=== PATIENT | female | born 1950 | race Caucasian/White ===

== ENCOUNTER 2019-05-02 13:46 | Outpatient (CLI) | payer MEDICARE ==
--- NOTE | 2019-05-03 08:58 | DEXA Report ---
Reason: SCREENING FOR OSTEOPOROSIS Procedure Date: 05/02/2019 Accession Number: [id number] / [id number] Procedure: DEX - Dexa Spine and/or Hip CPT Code: FULL RESULT: EXAM: Dexa Spine and/or Hip DATE: 05/02/2019 2:11 PM CLINICAL HISTORY: SCREENING FOR OSTEOPOROSIS, postmenopausal female. TECHNIQUE: Dual energy x-ray absorptiometry (DXA) was performed on a [employer] System. Regions measured are the AP Spine, femoral neck, and if needed forearm. COMPARISON: None. In accordance with the International Society for Clinical Densitometry (ISCD) guidelines, data from previous exams may be reanalyzed using current recommendations and techniques. This is done to allow a more accurate basis for comparison with the current study. FINDINGS: The data for the lumbar spine is as follows: BMD (g/cm/cm) T-SCORE Z-SCORE REGION L1 0.885 -2.0 -0.5 L2 0.964 -2.0 -0.5 L3 1.097 -0.9 0.6 L4 0.974 -1.9 -0.4 TOTAL 0.987 -1.6 -0.1 NOTE: All evaluable vertebrae are used for classification The data for the hip is as follows: BMD (g/cm/cm) T-SCORE Z-SCORE REGION Neck 0.839 -1.4 0.1 TOTAL 0.868 -1.1 0.1 IMPRESSION: THE WHO CLASSIFICATION BASED ON THE INTERNATIONAL REFERENCE STANDARD IS OSTEOPENIA, REFERENCE LUMBAR SPINE. THE FRACTURE RISK IS INCREASED. RECOMMENDATION: Patients with diagnosis of osteoporosis or osteopenia should have regular bone mineral density assessment. For those eligible for Medicare, routine testing is allowed once every 2 years. Testing frequency can be increased for patients who have rapidly progressing disease or for those who are receiving medical therapy to restore bone mass. COMMENT: World Health Organization (WHO) definitions for osteoporosis and osteopenia: NORMAL BMD: T-score at -1.0 or higher, fracture risk is low OSTEOPENIA BMD: T-score between -1.0 and -2.5, fracture risk is increased. OSTEOPOROSIS BMD: T-score at -2.5 or lower, fracture risk is high. National Osteoporosis Foundation recommends: 1. Obtain adequate dietary calcium (at least 1200 mg per day) and vitamin D (400-800 international units per day). 2. Participate, as appropriate, in regular weightbearing and muscle-strengthening exercise. 3. Avoid tobacco use and reduce alcohol and caffeine intake. 4. For more detailed information see the website at www.NOF.org.
== END 2019-05-02 13:47 | disposition home or self-care (01) ==
LOC: DI 13:46
PROVIDERS: ATTEND Registered Nurse
DX: Z13.820 Encounter for screening for osteoporosis (principal); M85.89 Other specified disorders of bone density and structure, multiple sites
CPT/HCPCS: 77080

== ENCOUNTER 2019-05-15 10:44 | Outpatient (CLI) | payer MEDICARE ==
[2019-05-15 17:36] LABS: BASOPHILS # (AUTO) 0.1 10^3/uL (0.0-0.1); BASOPHILS % (AUTO) 1.8 %; EOSINOPHILS # (AUTO) 0.1 10^3/uL (0.0-0.7); EOSINOPHILS % (AUTO) 1.1 %; HGB - HEMOGLOBIN 11.7 g/dL (12.0-16.0); LYMPHOCYTES # (AUTO) 1.8 10^3/uL (1.5-3.5); LYMPHOCYTES % (AUTO) 39.1 %; MEAN CORPUSCULAR HGB CONC 33.1 g/dL (32.0-36.0); MEAN CORPUSCULAR VOLUME 93.4 fL (81.0-99.0); MEAN PLATELET VOLUME 11.8 fL (7.9-10.8); MONOCYTES # (AUTO) 0.5 10^3/uL (0.0-1.0); MONOCYTES % (AUTO) 11.6 %; NEUTROPHILS # (AUTO) 2.1 10^3/uL (1.5-6.6); NEUTROPHILS % (AUTO) 46.4 %; PLT - PLATELET COUNT 207 10^3/uL (130-450); RED BLOOD COUNT 3.78 10^6/uL (4.20-5.40); RED CELL DISTRIBUTION WIDTH 12.6 % (12.0-15.0); WHITE BLOOD COUNT 4.6 x10^3/uL (4.8-10.8)
[2019-05-15 17:57] LABS: ALBUMIN 4.4 g/dL (3.2-5.5); ALBUMIN/GLOBULIN RATIO 1.4 (1.0-2.2); BILIRUBIN,TOTAL 0.7 mg/dL (0.2-1.0); CALCIUM 9.3 mg/dL (8.5-10.3); CREATININE 0.6 mg/dL (0.4-1.0); TOTAL PROTEIN 7.5 g/dL (6.7-8.2)
== END 2019-05-15 10:45 | disposition home or self-care (01) ==
LOC: LAB.S 10:44
PROVIDERS: ATTEND Internal Medicine
DX: R14.0 Abdominal distension (gaseous) (principal)
CPT/HCPCS: 36415; 80053; 85025; 85651

== ENCOUNTER 2019-05-17 10:21 | Outpatient (CLI) | payer MEDICARE ==
--- NOTE | 2019-05-17 10:59 | XRAY Report ---
Reason: ABDOMINAL BLOATING R14.0 Procedure Date: 05/17/2019 Accession Number: [id number] / [id number] Procedure: XRS - Abdomen 2 View X-Ray CPT Code: 71899 FULL RESULT: EXAM: ABDOMEN RADIOGRAPHY EXAM DATE: 05/17/2019 10:33 AM. CLINICAL HISTORY: Gas and abdominal bloating for one month COMPARISON: None. TECHNIQUE: 2 views. FINDINGS: Lung Bases: Unremarkable. Bowel Gas Pattern: Nonspecific gas pattern. Large amount of generalized retained stool. Free Air: None. Other: Lumbar scoliosis with degenerative disk disease of at least L3-L4. IMPRESSION: The primary finding is a large amount of generalized stool. RADIA
== END 2019-05-17 10:22 | disposition home or self-care (01) ==
LOC: DI.S 10:21
PROVIDERS: ATTEND Internal Medicine
DX: R14.0 Abdominal distension (gaseous) (principal)
CPT/HCPCS: 74019

== ENCOUNTER 2019-06-05 14:16 | Outpatient (CLI) | payer MEDICARE ==
--- NOTE | 2019-06-10 13:57 | Mammography Report ---
Reason: ROUTINE MAMMO Procedure Date: 06/05/2019 Accession Number: [id number] / [id number] Procedure: MGS - Screening Mammo Dig Bilat CPT Code: FULL RESULT: EXAM: Screening Mammo Dig Bilat DATE: 06/05/2019 2:46 PM CLINICAL HISTORY: Routine screening, history of prior biopsies. TECHNIQUE: (B) - Bilateral CC and MLO views were obtained. COMPARISON: 06/05/2018, 02/16/2017, 02/27/2015 04/26/2013 PARENCHYMAL PATTERN: (D) - The breasts demonstrate heterogeneously dense fibroglandular parenchyma bilaterally. FINDINGS: No significant interval change. Biopsy clips right upper outer quadrant stable. There are no suspicious masses, calcifications, or areas of distortion. IMPRESSION: Negative examination. BI-RADS category 1. RECOMMENDATION: (ANNUAL) - Recommend routine annual screening mammography. BI-RADS CATEGORY: (1) - Negative. STANDARD QUALIFYING STATEMENTS: 1. This examination was not reviewed with the aid of Computer-Aided Detection (CAD). 2. A negative or benign imaging report should not preclude biopsy if clinically suspicious findings are present. 3. Dense breasts may obscure an underlying neoplasm. 4. This examination was reviewed without the aid of 3D breast imaging (tomosynthesis).
== END 2019-06-05 14:17 | disposition home or self-care (01) ==
LOC: DI.S 14:16
DX: Z12.31 Encounter for screening mammogram for malignant neoplasm of breast (principal)
CPT/HCPCS: 77067

== ENCOUNTER 2019-07-18 15:16 | Outpatient (CLI) | payer MEDICARE ==
--- NOTE | 2019-07-20 11:15 | Ultrasound Report ---
Reason: ABD BLOATING Procedure Date: 07/18/2019 Accession Number: [id number] / [id number] Procedure: US - Pelvic w/Transvaginal CPT Code: Final Report FULL RESULT: EXAM: PELVIC ULTRASOUND EXAM DATE: 07/18/2019 04:00 PM. CLINICAL HISTORY: Abdominal bloating. COMPARISON: None. TECHNIQUE: Realtime transabdominal pelvic scan performed to identify the uterus and adnexa and as an overview of other pelvic structures, followed by transvaginal scan to provide greater detail of the uterus and adnexa, with static image documentation. FINDINGS: Uterus: 4.5 x 2.7 x 2.2 cm, volume 14.2 cc. Retroverted and retroflexed position. Normal overall size and echotexture. Masses: 1. 1.3 x 1 x 1.4 cm left fundal intramural hypoechoic fibroid. 2. At the level of the fundus, possible 0.9 x 0.9 x 0.8 cm submucosal fibroid. Endometrium: 12 mm. Focal complex masslike region in the endometrium measuring 1.5 x 1.1 x 2.2 cm with internal vascularity. Associated cystic components are noted. Apparent cystic area within the endometrium on the image labeled right endometrium sagittal measures up to 0.7 x 0.6 cm. Cervix: Unremarkable. Right Ovary: 1.8 x 0.9 x 1.7 cm, volume 1.5 cc. Normal echotexture and blood flow. Left Ovary: 2.2 x 0.6 x 1.5 cm, volume 1.1 cc. Normal echotexture and blood flow. Free Fluid: None. Other: None. IMPRESSION: 1. Complex masslike lesion in the fundal endometrium measuring up to 2.2 cm with small cystic components and internal vascularity. Correlate for dysfunctional uterine bleeding. Findings could represent endometrial carcinoma or endometrial hyperplasia/polyp. MRI of the pelvis with and without contrast, sonohysterogram or endometrial sampling could be performed as needed. 2. 0.9 cm fundal submucosal fibroid. 1.4 cm left fundal intramural fibroid. 3. Both ovaries and adnexa are normal. RADIA
== END 2019-07-18 15:17 | disposition home or self-care (01) ==
LOC: DI 15:16
PROVIDERS: ATTEND Registered Nurse
DX: R14.0 Abdominal distension (gaseous) (principal); D49.59 Neoplasm of unspecified behavior of other genitourinary organ
CPT/HCPCS: 76830; 76856

== ENCOUNTER 2019-07-25 17:39 | Outpatient (CLI) | payer MEDICARE ==
[2019-07-25] MEDS ORDERED: GADOBUTROL 7.5 MMOL/7.5 ML VIAL ONE (18:44)
[2019-07-25] MEDS: GADOBUTROL 7.5 MMOL/7.5 ML VIAL IVP ONE (19:18)
--- NOTE | 2019-07-26 16:15 | MRI Report ---
Reason: ABD BLOATING Procedure Date: 07/25/2019 Accession Number: [id number] / [id number] Procedure: MRI - Pelvis W/WO CPT Code: Final Report FULL RESULT: EXAM: MR PELVIS WITH AND WITHOUT CONTRAST (MR FEMALE PELVIS) EXAM DATE: 07/25/2019 07:30 PM. CLINICAL HISTORY: ABD BLOATING. COMPARISON: PELVIC W/TRANSVAGINAL 07/18/2019 3:25 PM. TECHNIQUE: Multiplanar breath-hold T1, T2 obtained through the pelvis on an MR scanner. Images obtained before and after administration of 6 cc Gadavist intravenous contrast. FINDINGS: Reproductive Organs: Uterus: The uterus is anteverted, retroflexed, and measures 4.5 x 2.0 x 3.7 cm with volume 17 cc. There is an 8.0 cm hypoenhancing T2 hypointense intramural fibroid in the left frontal region as seen on series 501 image 17 and series 901 image 71. The endometrial stripe measures up to 9 mm in the fundus where there is 9 x 15 x 21 mm circumscribed oval masslike area with multiple tiny nonenhancing cystic foci, as seen on the ultrasound. Right Ovary: The right ovary measures 1.9 x 1.0 x 2.1 cm with volume 2.0 cc (501/21, 701/22). Unremarkable. Left Ovary: The left ovary measures 2.8 x 0.6 x 2.6 cm with volume 2.2 cc (501/22, 701/21). Unremarkable. Bowel: The visualized portions of the small bowel, colon, and rectum appear normal. Bladder: The urinary bladder appears normal. Other: Bones and body wall are unremarkable. IMPRESSION: Approximately 9 x 15 x 21 mm masslike area of thickening in the endometrium in the uterine body and fundus with multiple small nonenhancing cystic spaces, most consistent with an endometrial polyp. Cystic endometrial hyperplasia is less likely. Endometrial carcinoma is least likely, but endometrial biopsy should be considered to exclude this entity. If the biopsy is negative, history of sonogram could be used to confirm that the structure represents a polyp rather than hyperplasia (as clinically indicated). RADIA
== END 2019-07-25 17:40 | disposition home or self-care (01) ==
LOC: DI 17:39
PROVIDERS: ATTEND Registered Nurse
DX: R14.0 Abdominal distension (gaseous) (principal); R93.89 Abnormal findings on diagnostic imaging of other specified body structures
CPT/HCPCS: 72197; A9585

== ENCOUNTER 2019-09-10 09:46 | Outpatient (CLI) | payer MEDICARE ==
[2019-09-10 10:13] LABS: BASOPHILS # (AUTO) 0.1 10^3/uL (0.0-0.1); BASOPHILS % (AUTO) 1.2 %; HGB - HEMOGLOBIN 12.3 g/dL (12.0-16.0); LYMPHOCYTES # (AUTO) 1.7 10^3/uL (1.5-3.5); LYMPHOCYTES % (AUTO) 38.2 %; MEAN CORPUSCULAR HEMOGLOBIN 29.1 pg (27.0-31.0); MEAN CORPUSCULAR VOLUME 90.8 fL (81.0-99.0); MEAN PLATELET VOLUME 10.2 fL (7.9-10.8); MONOCYTES # (AUTO) 0.4 10^3/uL (0.0-1.0); MONOCYTES % (AUTO) 9.7 %; NEUTROPHILS # (AUTO) 2.2 10^3/uL (1.5-6.6); NEUTROPHILS % (AUTO) 50.7 %; PLT - PLATELET COUNT 195 10^3/uL (130-450); RED BLOOD COUNT 4.23 10^6/uL (4.20-5.40); RED CELL DISTRIBUTION WIDTH 12.6 % (12.0-15.0); WHITE BLOOD COUNT 4.3 x10^3/uL (4.8-10.8)
[2019-09-10 10:27] LABS: ALBUMIN 4.4 g/dL (3.2-5.5); ALBUMIN/GLOBULIN RATIO 1.5 (1.0-2.2); BILIRUBIN,TOTAL 0.5 mg/dL (0.2-1.0); CALCIUM 9.3 mg/dL (8.5-10.3); CREATININE 0.6 mg/dL (0.4-1.0); TOTAL PROTEIN 7.3 g/dL (6.7-8.2)
== END 2019-09-10 09:47 | disposition home or self-care (01) ==
LOC: LAB 09:46
PROVIDERS: ATTEND Obstetrics & Gynecology
DX: Z01.812 Encounter for preprocedural laboratory examination (principal); N84.0 Polyp of corpus uteri
CPT/HCPCS: 36415; 80053; 85025

== ENCOUNTER 2019-09-11 14:54 | Day surgery (SDC) | payer MEDICARE ==
[~2019-09-11 14:54] MED LIST: ACETAMINOPHEN 1,000 MG/100 ML 100 ML IV ONE; CEFAZOLIN SODIUM IN 0.9 % NACL 2 GM/100 ML BAG IV ONE; CELECOXIB 100 MG CAPSULE PO ONE; GABAPENTIN 400 MG CAPSULE ONE
[2019-09-11] MEDS ORDERED: LACTATED RINGERS 1,000 ML IV ONE (14:59)
--- NOTE | 2019-09-11 15:11 | ANESTHESIA ---
Pre-Anesthesia VS, & Labs - Diagnosis Endometrial polyp - Procedure D and C, myosure hysteroscopy Vital Signs: Temp Pulse Resp BP Pulse Ox 36.3 C L 80 16 137/72 H 97 09/11/19 15:00 09/11/19 15:00 09/11/19 15:00 09/11/19 15:00 09/11/19 15:00 Height 5 ft 6 in Weight (kg) 67 kg - NPO >8 hours, Other (Sip water with meds) - Is Patient ?: No - Lab Results Lab results reviewed: Yes Home Medications and Allergies Home Medications: Ambulatory Orders Calcium Carbonate [Calcium] 600 mg PO BID 09/10/19 Cholecalciferol (Vitamin D3) [Vitamin D3] 2,000 unit PO DAILY 09/10/19 Multivitamin [Multiple Vitamins] 1 each PO DAILY 09/10/19 Calcium Carbonate [Calcium] 600 mg PO BID 09/10/19 Cholecalciferol (Vitamin D3) [Vitamin D3] 2,000 unit PO DAILY 09/10/19 Multivitamin [Multiple Vitamins] 1 each PO DAILY 09/10/19 Allergies/Adverse Reactions: Allergies Allergy/AdvReac Type Severity Reaction Status Date / Time Sulfa (Sulfonamide Allergy Rash Verified 09/10/19 10:24 Antibiotics) benzonatate AdvReac hypotension, Verified 09/10/19 10:24 fainting omeprazole [From Prilosec] AdvReac Nausea Verified 09/10/19 10:24 Anes History & Medical History - Anesthetic History Anesthesia Complications: reports: No previous complications Family history of Anesthesia Complications: Denies Family history of Malignant Hyperthermia: Denies (Bloating) - Medical History Cardiovascular: reports: None Pulmonary: reports: None Gastrointestinal: reports: Colon polyps, Other Urinary: reports: None Neuro: reports: None Musculoskeletal: reports: Osteoarthritis, Osteopenia, Chronic back pain Endocrine/Autoimmune: reports: None Blood Disorders: reports: None Skin: reports: Eczema Smoking Status: Never smoker Psychosocial: reports: No issues indicated - Surgical History General: Colonoscopy, EGD Eyes Ears Nose Throat (EENT): Tonsil/Adenoidectomy Gynecologic: Tubal ligation Exam General: Alert Dental: TMJ, Other (Permanent retainer bottom) Mouth Opening: Greater than 4 Fingerbreadths Neck Mobility: Normal Mallampati classification: I Thyromental Distance: greater than 6 cm Respiratory: Lungs clear Cardiovascular: Regular rate Mental/Cognitive Status: Alert/Oriented X3 Plan Anesthesia Type: General Consent for Procedure(s) Verified and Reviewed: Yes Code Status: Attempt Resuscitation ASA classification: 2-Mild systemic disease Is this case an emergency?: No
[2019-09-11] MEDS ORDERED: LIDOCAINE 1%-EPI 1:100000 20 ML MDV ONE (16:02)
[2019-09-11] MEDS ORDERED: BUPIVACAINE 0.5% PF 30 ML VIAL ONE (16:03)
[2019-09-11] MEDS ORDERED: PROPOFOL 200 MG/20 ML VIAL IVP ONE (16:19)
[2019-09-11] MEDS ORDERED: LIDOCAINE-MPF 2% 5 ML VIAL IM ONE (16:19)
[2019-09-11] MEDS ORDERED: MIDAZOLAM 2 MG/2 ML VIAL IVP ONE (16:19)
[2019-09-11] MEDS ORDERED: ONDANSETRON 4 MG/2 ML VIAL IVP ONE (16:19)
[2019-09-11] MEDS ORDERED: KETOROLAC 30 MG/ML VIAL IVP ONE (16:19)
[2019-09-11] MEDS ORDERED: fentaNYL 100 MCG/2 ML VIAL IVP ONE (16:19)
[2019-09-11] MEDS ORDERED: ONDANSETRON 4 MG/2 ML VIAL IVP PRN (17:17)
[2019-09-11] MEDS ORDERED: LORazepam 2 MG/ML VIAL IVP PRN (17:17)
[2019-09-11] MEDS ORDERED: oxyCODONE 5 MG TABLET PO PRN (17:17)
--- NOTE | 2019-09-11 17:20 | OPERATIVE REPORT ---
Operative Report - General Procedure Date: 09/11/19 Planned Procedure: Hysterscopy with D&C resection of endometrial polyp Pre-Op Diagnosis: endometrial polyp with cystic hyperplasia Procedure Performed: Hysterscopy with D&C resection of endometrial polyp Post Op Diagnosis: endometrial polyp with cystic hyperplasia - Procedure Note Primary Surgeon: Rafael Hsieh MD Anesthesia Provider: Janes Echols CRNA Anesthesia Technique: General LMA Pathology: endometrial polyp IV Fluids (mL): 250 Estimated Blood Loss (mL): 5 - Other Other Information/Narrative: [id number]
[2019-09-11 17:45] VITALS: BP 123/56
--- NOTE | 2019-09-12 02:17 | OPERATIVE REPORT ---
DATE OF SERVICE: 09/11/2019 Physician: Rafael Hsieh MD PREOPERATIVE DIAGNOSIS: Endometrial polyp with cystic hyperplasia. POSTOPERATIVE DIAGNOSES: Endometrial polyp with cystic hyperplasia. PROCEDURE PERFORMED: Hysteroscopy with dilatation and curettage and resection of endometrial polyp. SURGEON: Rafael Hsieh MD ANESTHESIA PROVIDER: Janes Ba CRNA ANESTHETIC: General via laryngeal mask airway. ESTIMATED BLOOD LOSS: 5 mL IV FLUIDS: 250 mL FINDINGS: Uterus sounded to 7 cm. There was evidence of an endometrial polyp filling the entire end ometrial cavity. This was removed without incident. PROCEDURE: Following adequate general anesthetic via LMA, patient was placed in the dorsal lithotomy position in [facility]. At this point, pelvic examination was performed in which the uterus was felt to be somewhat anterior. She was then prepped and draped in the usual fashion. A timeout was performed, at which time concerns were addressed. She had never had any children; thus, the cervix w as very tight with concerns about it being stenotic. At this point, the procedure was commenced. A speculum was placed in the vagina. The cervix was vis ualized, grasped with a single-tooth tenaculum anteriorly. The cervix was noted to be very stenotic in that she had never had any children. The 3 mm dilator was then passed through the cervix. Care w as taken to try and follow the cervical canal to decrease the risk of forming a pseudo tract. She wa s then dilated up to 7 mm. At this point, the hysteroscope was introduced, and there was evidence of a polyp filling the interior cavity of the uterus. This was removed with the MyoSure. Both cornua were easily visualized and there was no evidence of remaining polyp. At this point, the procedure was terminated. The cervix was released from the single-tooth tenaculum . The patient tolerated the procedure well and was taken to recovery in stable condition. Sponge an d needle counts were correct. TD: 09/11/2019 17:27
== END 2019-09-11 14:55 | disposition home or self-care (01) ==
LOC: SDS 14:54
PROVIDERS: ATTEND Obstetrics & Gynecology
PROC: 0UB98ZZ Excision of Uterus, Via Natural or Artificial Opening Endoscopic (ICD-10-PCS; principal; 2019-09-11 16:15)
DX: N84.0 Polyp of corpus uteri (principal); R14.0 Abdominal distension (gaseous)
CPT/HCPCS: 58558; A9270; J0131; J0690; J7120

== ENCOUNTER 2020-01-24 08:25 | Outpatient (CLI) | payer MEDICARE ==
[2020-01-24] MEDS ORDERED: IOVERSOL 320 100 ML VIAL IVP ONE ×2 (08:35→10:18)
[2020-01-24] MEDS ORDERED: IOVERSOL 320 50 ML VIAL ONE (08:35)
[2020-01-24 08:53] LABS: CREATININE 0.6 mg/dL (0.4-1.0)
[2020-01-24] MEDS ORDERED: IOVERSOL 320 50 ML VIAL PO ONE (10:18)
--- NOTE | 2020-01-24 16:27 | CT Report ---
PROCEDURE: Abdomen/Pelvis W INDICATIONS: Abdominal Bloating CONTRAST: IV CONTRAST: Optiray 320 ml: 100 PO CONTRAST: Optiray 320 ml50 TECHNIQUE: After the administration of oral and intravenous contrast, 5 mm thick sections acquired from the diap hragms to the symphysis. 5 mm thick coronal and sagittal reformats were acquired. For radiation dos e reduction, the following was used: automated exposure control, adjustment of mA and/or kV accordin g to patient size. COMPARISON: MRI pelvis 07/25/2019. FINDINGS: Image quality: Excellent. ABDOMEN: Lung bases: There is minimal dependent atelectasis. Heart size is normal. Solid organs: Evaluation of the liver demonstrates no focal hepatic mass lesion. Gallbladder appears within normal limits without calcified gallstones. Biliary system is non dilated. No peripancreatic fat stranding or fluid collections. 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 The main pancreatic duct is nondistended. No adrenal nodules. Kidneys demonstrat e normal size and enhancement, without hydronephrosis. Peritoneum and bowel: Small bowel loops demonstrate normal wall thickness and caliber. The appendix i s normal in appearance. There is moderate stool distention throughout the colon suggestive of constip ation. No definite evidence of obstruction. Colonic diverticulosis is demonstrated without acute dive rticulitis. No free fluid or air. Nodes and vessels: No retroperitoneal or mesenteric adenopathy by size criteria. Aorta and inferior vena cava are normal in size. Miscellaneous: No ventral hernias. PELVIS: Genitourinary: Bladder wall thickness is normal. Miscellaneous: No inguinal hernias or adenopathy. Bones: No suspicious bony lesions. No vertebral body compression fractures. IMPRESSION: 1. Moderate colonic stool distention suggestive of constipation. No definite bowel obstruction. 2. Colonic diverticulosis without acute diverticulitis. 3. Small oval cystic lesion within the pancreatic body is nonspecific but likely represents a small s tawana branch IPMN. Further evaluation may be obtained with a pancreatic protocol MRI if clinically cece cated. Reviewed by: Pancho Farmer MD on 01/24/2020 4:25 PM PDT Approved by: Pancho Farmer MD on 01/24/2020 4:25 PM PDT Station ID: [id number]
== END 2020-01-24 08:26 | disposition home or self-care (01) ==
LOC: DI 08:25
DX: R14.0 Abdominal distension (gaseous) (principal); K57.30 Diverticulosis of large intestine without perforation or abscess without bleeding; K86.9 Disease of pancreas, unspecified
CPT/HCPCS: 36415; 74177; 82565; Q9967

== ENCOUNTER 2021-07-15 19:45 | Emergency (ER) | payer MEDICARE ==
[2021-07-15 19:53] VITALS: BP 140/74
[2021-07-15] MEDS ORDERED: KETOROLAC 30 MG/ML VIAL IM STA (20:13)
--- NOTE | 2021-07-15 20:42 | XRAY Report ---
PROCEDURE: Wrist 2 View RT INDICATIONS: dog bite distal forearm TECHNIQUE: 2 views of the wrist were acquired. COMPARISON: None FINDINGS: Bones: No fractures or dislocations. No suspicious bony lesions. First CMC joint and triscaphe art iculation osteoarthritis. Soft tissues: No suspicious soft tissue calcifications. Slightly irregular soft tissue defect invol ving the lateral aspect of the distal forearm. No underlying foreign bodies IMPRESSION: Soft tissue defect over the lateral distal forearm without underlying foreign body or fracture. Reviewed by: Arianna Soler MD on 07/15/2021 8:41 PM PST Approved by: Arianna Soler MD on 07/15/2021 8:41 PM PST Station ID: [id number]
--- NOTE | 2021-07-15 20:52 | ED Physician Documentation ---
History of Present Illness - Stated complaint Stated Complaint: DOG BITE - Chief complaint Chief Complaint: Ext Problem - History obtained from History obtained from: Patient - Additonal information Additional information: 70-year-old woman presents status post dog bite, seen earlier today at walk-in clinic and prescribed Augmentin. Patient returns because she is having persistent gradual in onset pain to the right wrist and forearm where the dog bite is. Aching, constant, moderate severity, radiating from wrist to forearm, worse with range of motion of the wrist. patient is R hand dominant Review of Systems Skin: reports: Bite / sting PD PAST MEDICAL HISTORY - Past Medical History Neuro: None - Present Medications Home Medications: Ambulatory Orders Medication Instructions Recorded Confirmed Calcium Carbonate [Calcium] 600 mg PO BID 09/10/19 07/15/21 Cholecalciferol (Vitamin D3) 2,000 unit PO DAILY 09/10/19 07/15/21 [Vitamin D3] Multivitamin [Multiple Vitamins] 1 each PO DAILY 09/10/19 07/15/21 Amox/Clav 875/125 [Augmentin 1 tab PO BID 07/15/21 07/15/21 875/125 Tab] Ibuprofen [Motrin Ib] 600 mg PO Q6H PRN #30 tab 07/15/21 - Allergies Allergies/Adverse Reactions: Allergies Allergy/AdvReac Type Severity Reaction Status Date / Time Sulfa (Sulfonamide Allergy Rash Verified 07/15/21 19:53 Antibiotics) benzonatate AdvReac hypotension, Verified 07/15/21 19:53 fainting omeprazole [From Prilosec] AdvReac Nausea Verified 07/15/21 19:53 - Social History Smoking Status: Never smoker PD ED PE NORMAL - Vitals Vital signs reviewed: Yes - General General: Alert and oriented X 3, No acute distress, Well developed/nourished - HEENT HEENT: Atraumatic, PERRL, EOMI - Derm Derm: Normal color, Warm and dry, Other (laceration to L forearm with sutures in place. puncture to L forearm, hemostatic. ) - Extremities Extremities: No deformity, Other (2+ BL radial pulses. mild swelling to L distal forearm with soft compartments. normal cap refill, sensation, movement) - Neuro Neuro: No motor deficit, No sensory deficit - Psych Psych: Normal mood, Normal affect Results - Vitals Vitals: Vital Signs - 24 hr 07/15/21 19:48 Temperature 36.8 C Heart Rate 76 Respiratory 18 Rate Blood Pressure 140/74 H O2 Saturation 100 Oxygen O2 Source Room air PD MEDICAL DECISION MAKING - ED course ED course: 70-year-old woman presents with pain to the right distal forearm and wrist after a dog bite earlier today. Compartment soft, with intact pulses, minimal swelling, normal hand and finger color, normal movement/sensation. she is taking Tylenol at home. Administered Toradol in the emergency department with improvement. Symptomatic care discussed. Strict return precautions discussed including return precautions for compartment syndrome. Plan follow-up for wound check outpatient. Departure - Departure Disposition: Home, Self Care Clinical Impression: Dog bite Condition: Stable Instructions: ED Bite Dog Prescriptions: Ibuprofen [Motrin Ib] 600 mg PO Q6H PRN #30 tab PRN Reason: Pain Comments: You are seen in the emergency department for evaluation of your dog bite. Please monitor for any of the signs and symptoms we discussed and return to the emergency department if you have any new or worsening symptoms or other concerns. Take ibuprofen 400 to 600 mg every 6 hours as needed for pain. Apply ice for 20 minutes every hour and elevate above the level of your heart to reduce swelling. Plan to follow-up for wound check with your primary doctor or urgent care or walk in clinic this week. Discharge Date/Time: 07/15/21 20:58
== END 2021-07-15 20:58 | disposition home or self-care (01) ==
LOC: ED 19:45
DX: M25.531 Pain in right wrist (principal); M79.631 Pain in right forearm; W54.0XXA Bitten by dog, initial encounter
CPT/HCPCS: 96372; 99281; 99283

== ENCOUNTER 2021-07-17 08:00 | Outpatient (CLI) | payer MEDICARE | END 2021-07-17 08:01 | disposition home or self-care (01) | LOC: LAB.S 08:00 | PROVIDERS: ATTEND Physician Assistant Medical | DX: L03.113 Cellulitis of right upper limb (principal) | CPT/HCPCS: 87070; 87205 ==

== ENCOUNTER 2021-07-19 19:54 | Emergency (ER) | payer MEDICARE ==
[2021-07-19] MEDS ORDERED: HYDROmorphone 1 MG/ML CARPUJECT IVP STA (21:04)
[2021-07-19] MEDS ORDERED: HYDROmorphone 1 MG/ML CARPUJECT IM STA (21:08)
[2021-07-19 21:53] VITALS: BP 117/67
--- NOTE | 2021-07-19 21:57 | ED Physician Documentation ---
History of Present Illness - Stated complaint Stated Complaint: WOUND INFECTION - Chief complaint Chief Complaint: Wound - Additonal information Additional information: 70-year-old female presents emergency department for evaluation of dog bite wound to her right forearm. She was bitten by a former neighbors dog on 15 July. She initially presented to one of our local walk-in clinics. The wound was rather large therefore it was tacked closed with 4 sutures. She was started on Augmentin. Shortly thereafter she was seen in our emergency department for increased pain and was given Toradol and advised to continue the antibiotics. Despite taking the Augmentin she continued to have increased redness swelling and red streaking. She was then started on doxycycline. Despite this she has had persistent and severe pain in the right forearm. She reports that the redness has improved but she cannot even lightly touch the wound without significant pain. There have been no fevers. Patient is right- hand dominant. Her tetanus is up-to-date. 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 : None HEENT: None Psych: None Musculoskeletal: None Derm: None - Past Surgical History Past Surgical History: No - Present Medications Home Medications: Ambulatory Orders Medication Instructions Recorded Confirmed Calcium Carbonate [Calcium] 600 mg PO BID 09/10/19 07/15/21 Cholecalciferol (Vitamin D3) 2,000 unit PO DAILY 09/10/19 07/15/21 [Vitamin D3] Multivitamin [Multiple Vitamins] 1 each PO DAILY 09/10/19 07/15/21 Amox/Clav 875/125 [Augmentin 1 tab PO BID 07/15/21 07/15/21 875/125 Tab] Ibuprofen [Motrin Ib] 600 mg PO Q6H PRN #30 tab 07/15/21 - Allergies Allergies/Adverse Reactions: Allergies Allergy/AdvReac Type Severity Reaction Status Date / Time Sulfa (Sulfonamide Allergy Rash Verified 07/19/21 19:56 Antibiotics) benzonatate AdvReac hypotension, Verified 07/19/21 19:56 fainting omeprazole [From Prilosec] AdvReac Nausea Verified 07/19/21 19:56 - Social History Does the pt smoke?: No Smoking Status: Never smoker Does the pt drink ETOH?: No Does the pt have substance abuse?: No - Immunizations Immunizations are current?: Yes - POLST Patient has POLST: No PD ED PE EXPANDED - Extremities Extremities: Right forearm (Approximate 4 cm bite laceration to the radial side of the right forearm. 4 x 4 area of surrounding erythema and induration very sensitive to touch. 4 sutures were removed from this bite wound and a large amount of purulent fluid immediately drained.) Results - Vitals Vitals: Vital Signs - 24 hr 07/19/21 07/19/21 07/19/21 19:57 21:13 21:51 Temperature 36.5 C 36.3 C L Heart Rate 76 84 64 Respiratory 16 18 14 Rate Blood Pressure 128/59 L 128/72 117/67 O2 Saturation 98 100 99 Oxygen O2 Source Room air PD MEDICAL DECISION MAKING - ED course Complexity details: reviewed results, re-evaluated patient, d/w patient ED course: 70-year-old female presents the emergency department for evaluation of a dog bite wound to the right forearm that has become infected. It was initially closed a local walk-in clinic and she was started on Augmentin and then doxycycline. Despite this she has had persistent pain but no fevers. At the bedside after administering 1 mg of Dilaudid we did remove the sutures that were in place. Unfortunately a very large amount of purulent fluid drained from the wound. This was sent for culture. The laceration was opened up and thoroughly irrigated with saline and then lightly packed with saline impregnated gauze. Patient is to continue her doxycycline and Augmentin. She reports having oxycodone at home from a previous surgery. I have encouraged her to take this. We discussed routine wound care at home and that I would expect with improved infection the pain should improve however given the depth and size of this wound she is to contact her primary care doctor to obtain a wound referral. Emergent return precautions were discussed for failure of symptoms to resolve. Departure - Departure Disposition: Home, Self Care Clinical Impression: Dog bite of right forearm with infection Qualifiers: Encounter type: subsequent encounter Qualified Code(s): S51.851D - Open bite of right forearm, subsequent encounter; L08.9 - Local infection of the skin and subcutaneous tissue, unspecified; W54.0XXD - Bitten by dog, subsequent encounter Condition: Stable Record reviewed to determine appropriate education?: Yes Comments: Lola unfortunately your dog bite wound has become seriously infected. We did remove all of the sutures from the wound and a large amount of purulent material drained out. We did send it for a culture. I do recommend that you continue the Augmentin and the doxycycline. Finish the full course of both antibiotics. I recommended that you call your primary care doctor tomorrow and request a referral to wound therapy. Tomorrow afternoon you can gently remove your dressing and wash with warm soap and water. Please apply a small amount of saline to the 2 x 2 gauze, pack it into the wound and then cover with nonstick dressing. I would expect reduced pain as this infection begins to heal. I recommend that you take the oxycodone that you already have at home about 1 hour before doing the dressing change. If at any point you are having increased redness, fevers milky drainage or red streaking you are to return immediately to the ER.
== END 2021-07-19 22:08 | disposition home or self-care (01) ==
LOC: ED 19:54
DX: S51.851A Open bite of right forearm, initial encounter (principal); L08.9 Local infection of the skin and subcutaneous tissue, unspecified; W54.0XXA Bitten by dog, initial encounter
CPT/HCPCS: 87070; 87205; 96372; 99283; J1170

== ENCOUNTER 2022-08-09 08:39 | Outpatient (CLI) | payer MEDICARE ==
--- NOTE | 2022-08-17 10:06 | Mammography Report ---
BILATERAL DIGITAL SCREENING MAMMOGRAM 3D/2D WITH EXAGGERATED CC: 08/09/2022 CLINICAL: Routine screening. Family history of breast cancer. Comparison is made to exams dated: 06/05/2019 mammogram - [facility], 06/05/2018 alexandreamogram, and 02/17/2017 mammogram - [facility]. Both breasts are heterogeneously dense, which may obscure small masses (category c / 51-75% glandular tissue). Reporting delay due to awaiting outside images for comparison. There are biopsy clips in the right breast. No significant masses, calcifications, or other findings are seen in either breast. There has been no significant interval change. IMPRESSION: NEGATIVE There is no mammographic evidence of malignancy. A 1 year screening mammogram is recommended. Based on the Tyrer Cuzick model (a risk assessment model) the patients lifetime risk is 8.2% and her 10 year risk is 5.2%. According to the ACR, ACS, and NCCN guidelines, an annual breast MRI exam brian g with mammogram is recommended if the patients lifetime risk is 20% or greater. This exam was interpreted at Station ID: [id number]. NOTE: For mammograms, a report in lay terms will be sent to the patient. Approximately 15% of breast malignancies will not be visualized mammographically. In the management of a palpable breast mass, a negative mammogram must not discourage biopsy of a clinically suspicious lesion. Electronically Signed By: Aniket Conley M.D. [email or web address]:08/17/2022 07:25:08 ACR BI-RADS Category 1: Negative 3341F PARENCHYMAL PATTERN: (D) - The breast(s) demonstrate(s) heterogeneously dense fibroglandular parmickiy ma. BI-RADS CATEGORY: (1) - 1 RECOMMENDATION: (ANNUAL) - Recommend routine annual screening mammography. [id number] 1 year screening LATERALITY: (B)
== END 2022-08-09 08:40 | disposition home or self-care (01) ==
LOC: DI.S 08:39
DX: Z12.31 Encounter for screening mammogram for malignant neoplasm of breast (principal)

== ENCOUNTER 2023-06-08 07:36 | Day surgery (SDC) | payer MEDICARE ==
[~2023-06-08 07:36] MED LIST changes: -ACETAMINOPHEN 1,000 MG/100 ML 100 ML IV ONE; +BRIMONIDINE 0.2% OPHTH DROPS 5 ML ONE; +BSS/LIDOCAINE/EPINEPHRINE 1 ML VIAL ONE; -CEFAZOLIN SODIUM IN 0.9 % NACL 2 GM/100 ML BAG IV ONE; -CELECOXIB 100 MG CAPSULE PO ONE; +CYCLOPENTOLATE 1% OPHTH DROPS 2 ML ONE; +EPINEPHrine 1 MG/ML AMP ONE; -GABAPENTIN 400 MG CAPSULE ONE; +KETOROLAC 0.45% OPHTH DROPS ONE; +PHENYLEPHRINE 2.5% OPHTH 2 ML DROPS ONE; +PROPARACAINE 0.5% OPHTH DROPS 15 ML ONE; +TIMOLOL 0.5% OPHTH DROPS ONE; +TRIAMCIN/MOXIFLOX OPHTHALMIC 0.6 ML VIAL IO ONE
[2023-06-08] MEDS ORDERED: LACTATED RINGERS 1,000 ML IV ONE ×2 (07:43→08:53)
--- NOTE | 2023-06-08 08:09 | ANESTHESIA ---
Pre-Anesthesia VS, & Labs - Diagnosis L nuclear cataract - Procedure L extraction cataract w IOL Vital Signs: Temp Pulse Resp BP Pulse Ox O2 Flow Rate 36.4 C L 73 16 128/75 97 06/08/23 07:43 06/08/23 07:43 06/08/23 07:43 06/08/23 07:43 06/08/23 07:43 Height: 5 ft 6 in Weight (kg): 66 kg Body Mass Index: 23.5 BMI Classification: Normal - NPO >8 hours - Is Patient ?: No - Lab Results Lab results reviewed: Yes Home Medications and Allergies Home Medications: Ambulatory Orders DULoxetine [Cymbalta] 20 mg PO DAILY 06/07/23 Calcium Carbonate [Calcium] 600 mg PO BID 09/10/19 Cholecalciferol (Vitamin D3) [Vitamin D3] 2,000 unit PO DAILY 09/10/19 Multivitamin [Multiple Vitamins] 1 each PO DAILY 09/10/19 DULoxetine [Cymbalta] 20 mg PO DAILY 06/07/23 Allergies/Adverse Reactions: Allergies Allergy/AdvReac Type Severity Reaction Status Date / Time Sulfa (Sulfonamide Allergy Rash Verified 06/08/23 07:56 Antibiotics) benzonatate AdvReac hypotension, Verified 06/08/23 07:56 fainting omeprazole [From Prilosec] AdvReac Nausea Verified 06/08/23 07:56 Anes History & Medical History - Medical History Cardiovascular: reports: None Pulmonary: reports: None Gastrointestinal: reports: Colon polyps Urinary: reports: None Neuro: reports: None Musculoskeletal: reports: Osteoarthritis, Fibromyalgia Endocrine/Autoimmune: reports: None Blood Disorders: reports: None Skin: reports: None Smoking Status: Never smoker - Surgical History General: reports: Colonoscopy Gynecologic: reports: Tubal ligation Exam General: Alert, Oriented x3, Cooperative Dental: WNL (hx TMJ) Mouth Opening: Greater than 4 Fingerbreadths Neck Mobility: Normal Mallampati classification: II Thyromental Distance: 4-6 cm Respiratory: Lungs clear, Normal breath sounds, No respiratory distress Cardiovascular: Regular rate Neurological: Normal speech Mental/Cognitive Status: Alert/Oriented X3, Normal for patient Plan Anesthesia Type: MAC Consent for Procedure(s) Verified and Reviewed: Yes Code Status: Attempt Resuscitation ASA classification: 2-Mild systemic disease Is this case an emergency?: No
[2023-06-08] MEDS ORDERED: MIDAZOLAM 2 MG/2 ML VIAL ONE (08:15)
[2023-06-08] MEDS ORDERED: BRIMONIDINE 0.2% OPHTH DROPS 5 ML OPTH ONE (08:24)
[2023-06-08] MEDS ORDERED: EPINEPHrine 1 MG/ML AMP IR ONE (08:25)
[2023-06-08] MEDS ORDERED: TIMOLOL 0.5% OPHTH DROPS OPTH ONE (08:25)
[2023-06-08] MEDS ORDERED: VANCOMYCIN OPHTH (TOPICAL) 10 MG/ML SYRINGE TOP ONE (08:26)
[2023-06-08] MEDS ORDERED: TRIAMCIN/MOXIFLOX OPHTHALMIC 0.6 ML VIAL IO ONE (08:26)
[2023-06-08] MEDS ORDERED: BSS/LIDOCAINE/EPINEPHRINE 1 ML SYRINGE IO ONE (08:26)
[2023-06-08] MEDS ORDERED: PROPARACAINE 0.5% OPHTH DROPS 15 ML EACHEYE ONE (08:26)
--- NOTE | 2023-06-08 08:56 | OPERATIVE REPORT ---
Operative Report - Other Other Information/Narrative: Date of Surgery: 06/08/23 Preop Dx: Visually significant cataract left eye. This was the first cataract surgery. Postop Dx: Same Procedure: Phacoemulsification with posterior chamber toric intraocular lens implant left eye Surgeon: Dr. Praveen Padilla Anesthesia: Monitored anesthesia care Complications: None Operative Indications: This is a 72-year-old F with progressive vision loss in the left eye due to 3-4+ nuclear sclerotic cataract. Best corrected visual acuity was 20/20 with glare to 20/200 vision in the left eye. Indications for surgery were: - Overall decrease in vision - Difficulty seeing words on a computer screen - Difficulty reading - Difficulty seeing words, closed captions, or game scores on TV - Difficulty seeing street signs - Difficulty driving in low light or at night - Difficulty driving at night because of headlights from other vehicles The patient was consented at length concerning the risks and benefits of cataract surgery after which the patient expressed a desire to proceed with surgery. Operative Procedure: The patients cornea was marked in the pre-surgical area to indicate the axis for the toric intraocular lens. The patient was taken into OR#3 and placed under monitored anesthesia care. A surgical time-out was conducted confirming correct patient, correct procedure, and correct surgical site. The patient was given topical anesthesia and then prepped and draped in the usual sterile fashion. The eye was entered at the 6 and 3 oclock pos itions. Intracameral Shugarcaine was injected into the anterior chamber followed by a dispersive viscoelastic. A continuous-tear curvilinear capsulorhexis was performed. The nucleus was hydrodissected and phacoemulsified. The cortex was evacuated using automated infusion and aspiration. A cohesive viscoelastic was injected into the capsular bag and a 22.0 diopter toric intraocular lens was inserted into the bag and rotated to axis 102. Infusion and aspiration were used to evacuate the viscoelastic materials from the eye and the IOL was verified to remain on axis. The wounds were hydrated and the eye inflated to physiologic pressure using balanced salt solution. Approximately 0.25ml of a mixture of moxifolxacin and triamcinolone was injected subconjunctivally in the superior quadrant for infection and inflammation prophylaxis. Wound integrity was checked with Weck-Jannette sponges and the IOL axis was once again verified to be on the correct axis. The patient was taken from the operating room in good condition and given post-op instructions.
[2023-06-08 09:35] VITALS: BP 121/53; O2SAT 98
--- NOTE | 2023-06-08 09:50 | ANESTHESIA POST OP EVALUATION ---
Anesthesia Post Eval - Post Anesthesia Eval Vitals: Last Vital Signs Temp 36.3 C L 06/08/23 09:28 Pulse 62 06/08/23 09:28 Resp 14 06/08/23 09:28 BP 121/53 L 06/08/23 09:28 Pulse Ox 98 06/08/23 09:28 O2 Flow Rate CV Function Including HR & BP: Stable Pain Control: Satisfactory Nausea & Vomiting: Negative Mental Status: Baseline Respiratory Status: Airway Patent Hydration Status: Satisfactory Anesthesia Complications: None
== END 2023-06-08 07:37 | disposition home or self-care (01) ==
LOC: SDS 07:36
PROVIDERS: ATTEND Ophthalmology
DX: H25.12 Age-related nuclear cataract, left eye (principal)
CPT/HCPCS: 66984; A9270; J3490; J7120; V2632; V2787

== ENCOUNTER 2023-06-30 13:20 | Outpatient (CLI) | payer MEDICARE ==
--- NOTE | 2023-06-30 16:58 | MRI Report ---
PROCEDURE: FOOT WO - LT INDICATIONS: LEFT FOOT PAIN TECHNIQUE: Noncontrast sagittal T1 spin echo and T2 fast spin echo with fat saturation, long-axis T1 spin echo a nd T2 fast spin echo with fat saturation, short-axis proton density fast spin echo and T2 fast spin e cho with fat saturation through the forefoot. COMPARISON: None. FINDINGS: Image quality: Excellent. Bones and joints: No bone marrow contusions or metatarsal stress fractures. The sesamoid bones appe ar in expected positions, without internal edema. There is mild periarticular osteophyte formation at the first metatarsophalangeal joint with mild degenerative marrow edema in the first metatarsal head . No intraosseous lesions. Soft tissues: The visualized plantar foot muscles demonstrate normal signal and bulk. Visualized fl exor and extensor tendons appear intact, without tenosynovitis. No soft tissue ganglion cysts. Small amount of fluid between the first and second metatarsal heads. Sagittal images demonstrate no eviden ce for plantar plate tears. IMPRESSION: 1. First metatarsophalangeal joint osteoarthritis. 2. Metatarsal bursitis. Reviewed by: Paula Leigh MD on 06/30/2023 4:57 PM PST Approved by: Paula Leigh MD on 06/30/2023 4:57 PM PST Station ID: [id number]
== END 2023-06-30 13:21 | disposition home or self-care (01) ==
LOC: DI 13:20
PROVIDERS: ATTEND Family Medicine
DX: M19.072 Primary osteoarthritis, left ankle and foot (principal); M77.52 Other enthesopathy of left foot and ankle

== ENCOUNTER 2023-07-27 08:48 | Day surgery (SDC) | payer MEDICARE ==
[~2023-07-27 08:48] MED LIST changes: -BRIMONIDINE 0.2% OPHTH DROPS 5 ML ONE; -BSS/LIDOCAINE/EPINEPHRINE 1 ML VIAL ONE; -CYCLOPENTOLATE 1% OPHTH DROPS 2 ML ONE; -EPINEPHrine 1 MG/ML AMP ONE; -TIMOLOL 0.5% OPHTH DROPS ONE; -TRIAMCIN/MOXIFLOX OPHTHALMIC 0.6 ML VIAL IO ONE
[2023-07-27] MEDS ORDERED: TRIAMCIN/MOXIFLOX OPHTHALMIC 0.6 ML VIAL IO ONE ×2 (08:49→10:29)
[2023-07-27] MEDS ORDERED: EPINEPHrine 1 MG/ML AMP IO ONE ×2 (08:49→10:28)
[2023-07-27] MEDS ORDERED: LACTATED RINGERS 1,000 ML IV ONE ×2 (09:24→11:00)
[2023-07-27] MEDS ORDERED: CYCLOPENTOLATE 1% OPHTH DROPS 2 ML RIGHTEYE ONE (09:31)
[2023-07-27] MEDS ORDERED: BSS/LIDOCAINE/EPINEPHRINE 1 ML VIAL ONE (10:09)
[2023-07-27] MEDS ORDERED: TIMOLOL 0.5% OPHTH DROPS ONE (10:09)
[2023-07-27] MEDS ORDERED: BRIMONIDINE 0.2% OPHTH DROPS 5 ML ONE (10:09)
--- NOTE | 2023-07-27 10:23 | ANESTHESIA ---
Pre-Anesthesia VS, & Labs - Diagnosis right cataract - Procedure right cataract extraction with IOL Vital Signs: Temp Pulse Resp BP Pulse Ox O2 Flow Rate 36.3 C L 66 13 122/59 L 99 0 07/27/23 09:24 07/27/23 09:24 07/27/23 09:24 07/27/23 09:24 07/27/23 09:24 07/27/23 09:24 Height: 5 ft 5 in Weight (kg): 67.2 kg Body Mass Index: 24.6 BMI Classification: Normal - NPO >8 hours - Is Patient ?: No Home Medications and Allergies Calcium Carbonate [Calcium] 600 mg PO BID 09/10/19 Cholecalciferol (Vitamin D3) [Vitamin D3] 2,000 unit PO DAILY 09/10/19 Multivitamin [Multiple Vitamins] 1 each PO DAILY 09/10/19 DULoxetine [Cymbalta] 20 mg PO DAILY 06/07/23 Allergies/Adverse Reactions: Allergies Allergy/AdvReac Type Severity Reaction Status Date / Time Sulfa (Sulfonamide Allergy Rash Verified 07/26/23 13:43 Antibiotics) benzonatate AdvReac hypotension, Verified 07/26/23 13:43 fainting omeprazole [From Prilosec] AdvReac Nausea Verified 07/26/23 13:43 Anes History & Medical History - Anesthetic History Anesthesia Complications: reports: No previous complications - Medical History Cardiovascular: reports: None Pulmonary: reports: None Gastrointestinal: reports: Colon polyps Urinary: reports: None Neuro: reports: None Musculoskeletal: reports: Osteoarthritis, Fibromyalgia Endocrine/Autoimmune: reports: None Blood Disorders: reports: None Skin: reports: None Smoking Status: Never smoker - Surgical History General: reports: Colonoscopy Eyes Ears Nose Throat (EENT): reports: Cataracts Gynecologic: reports: Tubal ligation Exam General: Alert, Oriented x3 Dental: WNL Mouth Opening: Greater than 4 Fingerbreadths Neck Mobility: Normal Mallampati classification: II Respiratory: Lungs clear Cardiovascular: Regular rate Plan Anesthesia Type: MAC Consent for Procedure(s) Verified and Reviewed: Yes Code Status: Attempt Resuscitation ASA classification: 2-Mild systemic disease Is this case an emergency?: No
[2023-07-27] MEDS ORDERED: BSS/LIDOCAINE/EPINEPHRINE 1 ML SYRINGE IO ONE (10:28)
[2023-07-27] MEDS ORDERED: BRIMONIDINE 0.2% OPHTH DROPS 5 ML OPTH ONE (10:28)
[2023-07-27] MEDS ORDERED: TIMOLOL 0.5% OPHTH DROPS OPTH ONE (10:28)
[2023-07-27] MEDS ORDERED: LIDOCAINE-PF 2% 10 ML AMP SUBQ ONE (10:29)
[2023-07-27] MEDS ORDERED: MIDAZOLAM 2 MG/2 ML VIAL ONE (10:29)
[2023-07-27] MEDS ORDERED: PROPARACAINE 0.5% OPHTH DROPS 15 ML EACHEYE ONE (10:29)
[2023-07-27] MEDS ORDERED: fentaNYL 100 MCG/2 ML VIAL ONE (10:29)
[2023-07-27] MEDS ORDERED: VANCOMYCIN OPHTH (TOPICAL) 10 MG/ML SYRINGE TOP ONE (10:29)
--- NOTE | 2023-07-27 11:04 | OPERATIVE REPORT ---
Operative Report - Other Other Information/Narrative: Date of Surgery: 07/27/23 Preop Dx: Visually significant cataract right eye. Cataract surgery was performed in the left eye on . Postop Dx: Same Procedure: Phacoemulsification with posterior chamber toric intraocular lens implant right eye Surgeon: Dr. Praveen Padilla Anesthesia: Monitored anesthesia care Complications: None Operative Indications: This is a 72-year-old F with progressive vision loss in the right eye due to 3+ nuclear sclerotic cataract. Best corrected visual acuity was 20/20 with glare to 20/50 vision in the right eye. Indications for surgery were: - Overall decrease in vision - Difficulty seeing words on a computer screen - Difficulty reading - Difficulty seeing words, closed captions, or game scores on TV - Difficulty seeing street signs - Difficulty driving in low light or at night - Difficulty driving at night because of headlights from other vehicles - Difficulty with glare or bright lights in any situation The patient was consented at length concerning the risks and benefits of cataract surgery after which the patient expressed a desire to proceed with surgery. Operative Procedure: The patients cornea was marked in the pre-surgical area to indicate the axis for the toric intraocular lens. The patient was taken into OR#3 and placed under monitored anesthesia care. A surgical time-out was conducted confirming correct patient, correct procedure, and correct surgical site. The patient was given topical anesthesia and then prepped and draped in the usual sterile fashion. The eye was entered at the 6 and 3 oclock positions. Intracameral Shugarcaine was injected into the anterior chamber followed by a dispersive viscoelastic. A continuous-tear curvilinear capsulorhexis was performed. The nucleus was hydrodissected and phacoemulsified. The cortex was evacuated using automated infusion and aspiration. A cohesive viscoelastic was injected into the capsular bag and a 19.0 diopter toric intraocular lens was inserted into the bag and rotated to axis 075. Infusion and aspiration were used to evacuate the viscoelastic materials from the eye and the IOL was verified to remain on axis. The wounds were hydrated and the eye inflated to physiologic pressure using balanced salt solution. Approximately 0.25ml of a mixture of triamcinolone and moxifloxacin was injected trans- sclerally into the vitreous in the inferotemporal quadrant using a 30 gauge cannula. An additional 0.25ml of a mixture of triamcinolone and moxifloxacin was injected subconjunctivally in the superior quadrant for infection and inflammation prophylaxis. Wound integrity was checked with Weck-Jannette sponges and the IOL axis was once again verified to be on the correct axis. The patient was taken from the operating room in good condition and given post-op instructions.
[2023-07-27 11:12] VITALS: O2SAT 99
[2023-07-27 11:32] VITALS: BP 112/62
--- NOTE | 2023-07-27 11:42 | ANESTHESIA POST OP EVALUATION ---
Anesthesia Post Eval - Post Anesthesia Eval Vitals: Last Vital Signs Temp 36.6 C 07/27/23 11:22 Pulse 67 07/27/23 11:22 Resp 13 07/27/23 11:22 BP 112/62 07/27/23 11:22 Pulse Ox 99 07/27/23 11:22 O2 Flow Rate 0 07/27/23 09:24 CV Function Including HR & BP: Stable Pain Control: Satisfactory Nausea & Vomiting: Negative Mental Status: Baseline Respiratory Status: Airway Patent Hydration Status: Satisfactory Anesthesia Complications: None
== END 2023-07-27 08:49 | disposition home or self-care (01) ==
LOC: SDS 08:48
PROVIDERS: ATTEND Ophthalmology
DX: H25.11 Age-related nuclear cataract, right eye (principal); Z98.42 Cataract extraction status, left eye
CPT/HCPCS: 66984; A9270; J3490; J7120; V2632; V2787